=== PATIENT | female | born 1955 | race Caucasian/White ===

== ENCOUNTER 2016-06-25 05:51 | Day surgery (SDC) | payer MEDICAID ==
[~2016-06-25] VITALS: Ht 157.5 cm; Wt 163.6 kg
[~2016-06-25 05:51] MED LIST: ALBU8.5H IH; BENZ-26 PO; IBUP-1681 PO; METF500T4 PO; OMEP20 PO; TRAM50TA4 PO; VITAMIN B PO
[2016-06-25] MEDS ORDERED: SODIUM CHLORIDE 0.9% 1,000 ML IV ONE ×2 (06:00→06:03)
[2016-06-25 06:52] LABS: GLUCOSE,POINT OF CARE 127 MG/DL (70-110)
[2016-06-25] MEDS ORDERED: PROPOFOL 1% 20 ML VIAL IVP ONE (12:00)
[2016-06-25] MEDS ORDERED: ALBUTEROL SULFATE HFA 90 MCG/PUFF 8 GM INHALER IH ONE (12:00)
== END 2016-06-25 08:50 | disposition home or self-care (01) ==
LOC: SURGERY 05:51
PROVIDERS: ATTEND Specialist
DX: K21.9 Gastro-esophageal reflux disease without esophagitis (principal); E11.9 Type 2 diabetes mellitus without complications; F32.9 Major depressive disorder, single episode, unspecified; E66.9 Obesity, unspecified; F17.210 Nicotine dependence, cigarettes, uncomplicated
CPT/HCPCS: 43239; 82962; 88305; 88312; C1769; J2704; J7030; 99152; J3535

== ENCOUNTER 2016-07-04 06:07 | Day surgery (SDC) | payer MEDICAID ==
[~2016-07-04] VITALS: Ht 157.5 cm; Wt 163.6 kg
[~2016-07-04 06:07] MED LIST changes: +SODIUM CHLORIDE 0.9% 1,000 ML IV ONE
[2016-07-04] MEDS ORDERED: SODIUM CHLORIDE 0.9% 1,000 ML IV ONE (06:12)
[2016-07-04 06:42] LABS: GLUCOSE,POINT OF CARE 124 MG/DL (70-110)
[2016-07-04] MEDS ORDERED: PROPOFOL 1% 20 ML VIAL IVP ONE (12:00)
== END 2016-07-04 09:15 | disposition home or self-care (01) ==
LOC: SURGERY 06:07
PROVIDERS: ATTEND Specialist
DX: Z12.11 Encounter for screening for malignant neoplasm of colon (principal); D12.2 Benign neoplasm of ascending colon; K63.5 Polyp of colon; K57.90 Diverticulosis of intestine, part unspecified, without perforation or abscess without bleeding; K64.4 Residual hemorrhoidal skin tags; E66.9 Obesity, unspecified
CPT/HCPCS: 45380; 82962; 88305; 88307; J2704; J7030; 99152

== ENCOUNTER 2018-09-22 23:45 | Emergency (ER) | payer MEDICAID ==
[~2018-09-22] VITALS: Ht 157.5 cm; Wt 163.6 kg
[~2018-09-22 23:45] MED LIST changes: -ALBU8.5H IH; +ALBU8.5H8 IH; -BENZ-26 PO; +BENZ-51 PO; -IBUP-1681 PO; +IBUP-2354 PO; +METF-960 PO; -METF500T4 PO; -SODIUM CHLORIDE 0.9% 1,000 ML IV ONE
[2018-09-23] MEDS ORDERED: IPRATROPIUM BROMIDE 0.5 MG/2.5 ML NEB SOLUTION NEB ONE (00:15)
[2018-09-23] MEDS ORDERED: ALBUTEROL SULFATE 2.5 MG/0.5 ML NEB SOLUTION NEB ONE (00:15)
[2018-09-23 01:22] LABS: BASOPHILS % (AUTO) 0.2 % (0.0-2.0); EOSINOPHILS % (AUTO) 1.7 % (1.0-6.0); HEMATOCRIT 38.9 % (36-46); HEMOGLOBIN 12.4 g/dL (12.0-16.0); LYMPHOCYTES # (AUTO) 2.1 K/uL (1.0-4.8); LYMPHOCYTES % (AUTO) 29.1 % (22.0-44.0); MEAN CORPUSCULAR HEMOGLOBIN 27.3 pg (26.0-34.0); MEAN CORPUSCULAR VOLUME 86 fL (80-100); MONOCYTES # (AUTO) 0.5 K/uL (0.1-1.0); MONOCYTES % (AUTO) 6.9 % (2.0-9.0); NEUTROPHILS # (AUTO) 4.5 K/uL (1.8-7.7); NEUTROPHILS % (AUTO) 62.1 % (40.0-70.0); PLATELET COUNT (AUTO) 159 K/uL (150-450); RED BLOOD CELL COUNT(AUTO) 4.55 MIL/uL (4.00-5.20); RED CELL DISTRIBUTION WIDTH 18.4 % (11.5-14.5)
[2018-09-23 01:32] LABS: CALCIUM, TOTAL 8.5 mg/dL (8.8-10.5); CREATININE 1.25 mg/dL (0.60-1.30)
[2018-09-23 01:38] LABS: ALBUMIN 2.7 g/dL (3.4-5.0); BILIRUBIN,TOTAL 0.7 mg/dL (0.1-1.0); TOTAL PROTEIN, SERUM 7.6 g/dL (6.4-8.2)
[2018-09-23 01:39] LABS: GLUCOSE,POINT OF CARE 85 MG/DL (70-110)
[2018-09-23] MEDS ORDERED: ENOXAPARIN SODIUM 80 MG/0.8 ML PF SYRINGE SQ ONE ×2 (02:15)
[2018-09-23] MEDS ORDERED: ACETAMINOPHEN 500 MG TABLET PO ONE (04:45)
[2018-09-23] MEDS ORDERED: ACETAMINOPHEN 325 MG TABLET PO ONE (04:45)
[2018-09-23 05:43] VITALS: BP 118/60
== END 2018-09-23 06:20 | disposition left against medical advice (07) ==
LOC: EMS 23:47
DX: G62.9 Polyneuropathy, unspecified (principal); J45.909 Unspecified asthma, uncomplicated; Z90.710 Acquired absence of both cervix and uterus; Z79.84 Long term (current) use of oral hypoglycemic drugs; Z79.899 Other long term (current) drug therapy
CPT/HCPCS: 36415; 71045; 80053; 82962; 83880; 84484; 85025; 85379; 93005; 94640; 96372; 99284; J1650